=== PATIENT | female | born 1950 | race Caucasian/White ===

== ENCOUNTER 2017-03-08 11:26 | Inpatient (IN) | payer OTHER, MEDICARE ==
[~2017-03-08] VITALS: Ht 162.6 cm; Wt 81.7 kg
[~2017-03-08 11:26] MED LIST: HYDROCODON-ACE1 EA11 PO
--- NOTE | 2017-03-08 16:21 | NUR ---
Patient takes no medications
--- NOTE | 2017-03-08 16:30 | NUR ---
PT TO FLOOR VIA STRETCHER WITH ENVIRONMENTAL HEALTH INSPECTOR. MOVED TO BED GENTLY AND REPOSITONED SEVERAL TIMES. PT GIVEN DOSE OF DILAUDID. NO ABRASIONS NOTED. BRACE ON RIGHT WRIST. SMALL PILLOW UNDER RIGHT KNEE FOR COMFORT. DR GUILLEN IN TO EXPLAIN PROCEDURE, PT VERBALIZED UNDERSTANDING. SCDS IN PLACE
--- NOTE | 2017-03-08 18:38 | EKG ---
[facility] [address] [place] [address] Signed Normal sinus rhythm Normal ECG No previous ECGs available Confirmed by BRIGITTE DIAZ MD ([id number]) on 03/08/2017 6:38:16 PM Electronically Signed By: BRIGITTE DIAZ MD 03/08/17 1838 PATIENT NAME: JU WEINSTEIN Suze Electrocardiogram DATE OF : 50 PHYSICIAN: BRIGITTE DIAZ MD REPORT #: [id number] REPORT IS CONFIDENTIAL AND NOT TO BE RELEASED WITHOUT AUTHORIZATION
--- NOTE | 2017-03-08 18:39 | NUR ---
PT IV NOT PATENT FROM ED.COLT CAMERON HERE TO HAVE PT SIGN PAPERWORK, SHE STARTED AN IV. PT TOLERATED WELL. STATES SHE HAS SOME THROBBING PAIN BUT IS OK. DENIES CONCERNS. TALKING ON PHONE TO FRIEND.
--- NOTE | 2017-03-08 20:02 | NUR ---
PT CALLED FOR PAIN MEDICATION. PAIN 8/10 MOSTLY IN WRIST, BUT SOME IN HIP. MED WITH 1 MG DILUADID. ATE SANDWICH, DRINKING WATER. CALL LIGHT WITHIN REACH. STATED THAT SHE WAS MULT TASKING, TRYING TO OPEN A DOOR TO GET AWAY FROM A LOOSE DOG AND KEEP HER DOG TO SAFETY. DID NOT GET "TRIPPED" BY A DOG.
--- NOTE | 2017-03-08 20:41 | NUR ---
ORDERED UP SANDWICH FOR PATIENT. OFFERED HER SOUP ALSO, SHE DECLINED. GOT PATIENT FRESH ICE WATER. BOARDS UPDATED.
--- NOTE | 2017-03-08 21:20 | NUR ---
PATIENT IS RESTING IN BED AND REPORTS 9/10 PAIN IN HER RIGHT WRIST AND 5/10 PAIN IN HER RIGHT HIP. 1MG PRN IV DILAUDID GIVEN. GAVE THE PATIENT A WARM BLANKET AND A WHITE NOISE MACHINE TO HELP HER SLEEP. SCDs/HEEL PROTECTORS ON, CALL LIGHT WITHIN REACH.
--- NOTE | 2017-03-08 22:14 | NUR ---
WHEN PT WAS ADMITTED TO ROOM 111 FROM THE ED, PT HAD A PEREZ, 16 FR, THAT WAS PLACED BY COLT RODRIGUEZ. PHONE CALL TO CONFIRM THE DATE AND TIME TO JENNIFER AT THIS TIME.
--- NOTE | 2017-03-08 22:18 | NUR ---
PATIENT REPORTS 8/10 RIGHT WRIST PAIN AND 6/10 RIGHT HIP PAIN. 1MG IV DILAUDID GIVEN. SCDs/HEEL PROTECTORS ON, CALL LIGHT WITHIN REACH. BREATHING IS EVEN AND UNLABORED, 20 RESPIRATION/MIN. PATIENT DENIES FURTHER NEEDS AT THIS TIME.
--- NOTE | 2017-03-08 23:20 | NUR ---
PT CALLED NURSES STATION, COMPLAINED OF "8.5/10" PAIN. GAVE DILAUDID IV FOR PAIN. PT ALERT, BUT SOMETIMES SLIGHTLY CONFUSED. SHE IS HAVING TROUBLE REMEMBERING HOW TO USE HER CALL LIGHT TO CONTROL THE TV, EDUCATED PT WATCH LEADER LIGHT USE SEVERAL TIMES SINCE BEGINNING OF SHIFT. GAVE PT FRESH ICE WATER, PT UNDERSTANDS THAT SHE WILL BE NPO AT MIDNIGHT. WILL CONTINUE TO MONITOR PT CLOSELY.
--- NOTE | 2017-03-08 23:48 | NUR ---
PATIENT HAS BEEN COMPLAINING OF 8-9 PAIN IN RIGHT WRIST EVERY HOUR. 1MG OF PRN IV DILAUDID HAS BEEN GIVEN ROUGHLY EVERY HOUR. PATIENT PUT ON CONTINUOUS PULSE OXIMITRY DUE TO HOURLY NARCOTIC DOSES. O2 SATS WERE IN THE HIGH 80S, PUT 2L OF O2 VIA NC. ALSO APPLIED ICE TO RIGHT WRIST. PATIENT IS ARROUSABLE TO VOICE, HOWEVER SHE IS DROWSY AND FORGETFUL AT TIMES NEEDING RE-ORIENTATION TO TIME. SHE HAS DIFFICULTY ANSWERING QUESTIONS AT TIMES. BREATHING IS EVEN AND UNLABORED SHOWING NO SIGNS OF DISTRESS OR DISCOMFORT. CALLED DR. GUILLEN AND INFORMED HIM OF THE ABOVE INFORMATION. HE ORDERED 1-2 MG IV DILAUDID PRN AND TO USE PAIN MEDICATION JUDICIOUSLY.
--- NOTE | 2017-03-09 00:01 | NUR ---
NURSE IN ROOM. PUT IN NEW IV AND ATTACHED TO PULSE OX MACHINE.
--- NOTE | 2017-03-09 00:37 | NUR ---
PT CONTINUOUS PULSE OXIMETER HAS ALARMED SEVERAL TIMES DUE TO PT PULLING HER NASAL CANULA OFF, O2 SAT WAS 82% WHEN RN ENTERED ROOM. PT WOKE TO RN IN ROOM, REPLACED 2L O2 VIA NC AND O2 SAT INCREASED TO 94%. PT COMPLAINED OF FEELING HOT, REMOVED SOME BLANKETS AND TURNED DOWN HEAT IN ROOM. REMOVED ICE WATER FROM BED SIDE TABLE. PT UNDERSTANDS SHE IS NPO. PT HAS NO FURTHER NEEDS. NO APPARENT DISTRESS AT THIS TIME. SHE IS LAYING IN BED, APPEARS RELAXED. CALL LIGHT IN REACH.
--- NOTE | 2017-03-09 00:54 | NUR ---
PATIENT REPORTS 10/10 PAIN IN RIGHT WRIST. 1.25 MG OF IV PRN DILAUDID GIVEN. ALSO APPLIED ICE PACK AND REPOSITIONED ARM. BREATHING IS EVEN AND UNLABORED. O2 SAT AT 97% ON 2L O2 VIA NC, PULSE IS 84. SHE IS A&O X4. PATIENT DENIES FURTHER NEEDS AT THIS TIME.
--- NOTE | 2017-03-09 02:42 | NUR ---
PATIENT IS RESTING COMFORTABLY IN BED. BREATHING IS EVEN AND UNLABORED. O2 SAT AT 94% ON 2L O2 VIA NC, PULSE IS 91, NO SIGNS OF DISCOMFORT. CALL LIGHT WITHIN REACH.
--- NOTE | 2017-03-09 03:52 | NUR ---
PATIENT IS RESTING COMFORTABLY IN BED, BREATHING IS EVEN AND UNLABORED, O2 SATURATION AT 96% ON 2L OF O2, PULSE IS 81. PATIENT IS DISORIENTED TO TIME, BUT IS AWARE OF WHERE SHE IS AND WHY SHE IS IN THE HOSPITAL. PATIENT STATED THAT SHE THOUGHT IT WAS 1949. RE-ORIENTED HER AND TOLD HER IT WAS 2016. AFTER RE-OREINTING HER, SHE ANSWERED 2017 FOR THE REST OF THE QUESTIONS, INCLUDING THE PAIN ASSESSMENT. SHE IS NOT GRIMACING, APPEARS RELAXED IN BED, IS NOT MAKING ANY SOUNDS INDICATING DISCOMFORT, FALLS ASLEEP QUICKLY WHEN NOT BEING VERBALLY STIMULATED, APPEARS CONTENT IN BED.
--- NOTE | 2017-03-09 05:32 | NUR ---
pt complained of 8/10 pain in her right wrist and her right hip. pt able to give pain rate number and seems more oriented at this time. oxygen sat 98%, hr 88. gave fresh ice pack. pt has no further needs. call light in reach.
--- NOTE | 2017-03-09 05:52 | NUR ---
PATIENT WAS COMPLAINING OF 8-9 PAIN IN RIGHT WRIST Q1H DESPITE 1MG IV DILAUDID GIVEN EVERY HOUR. NEW ORDER FOR 1-2 MG IV DILAUDID. GAVE PATIENT 1.25 MG IV DILAUDID X1 AND PATIENT'S PAIN HAS BEEN ADEQUATELY CONTROLLED. SHE HAS BEEN DISORIENTED TO TIME THROUGHOUT SHIFT, REQUIRING RE-ORIENTATION. AT TIMES, PATIENT HAS BEEN UNABLE TO RATE HER PAIN, STATING "IT'S 2017" WHEN ASKED TO RATE PAIN ON 0-10 PAIN SCALE, THUS THE FLACC SCALE WAS USED, WHICH RESULTED IN 0 FOR PAIN. DUE TO FREQUENT NARCOTIC DOSES, PUT PATIENT ON CONTINUOUS PULSE OX, WHICH SHOWED SATS IN THE HIGH 80s. ON 2L OF 02 VIA NC. BREATHING HAS BEEN EVEN AND UNLABORED. INTENTIONAL ROUNDING DONE WITH ALL PATIENT'S NEEDS MET.
--- NOTE | 2017-03-09 06:19 | NUR ---
PATIENT HAD TEMP OF 99.4 AND 100 ML OF URINE OUTPUT FOR LAST [address] DIAZ AND NOTIFIED HIM OF PATIENT'S CURRENT CONDITION. HE ORDERED AN 1L BOLUS OF LR OVER 1HR. NO OTHER ORDERS AT THIS TIME.
--- NOTE | 2017-03-09 06:20 | NUR ---
PT RESTING QUIELTY. APPEARS TO BE SLEEPING. RR WNL AND UNLABORED. O2 SAT 97% ON 2L VIA NC. RR WNL AND UNLABORED.
--- NOTE | 2017-03-09 06:30 | NUR ---
UPDATED DR. GUILLEN ON PATIENT'S 99.4 TEMPERATURE AND LOW URINE OUTPUT. INFORMED HIM THAT DR. DIAZ ORDERED A 1L BOLUS OF LR.
--- NOTE | 2017-03-09 07:10 | NUR ---
REPORT RECEIVED FROM COLT SOARES. PT CURRENTLY SLEEPING AFTER A FAIRLY RESTLESS NIGHT. PT SLIGHTLY CONFUSED AT TIMES.
--- NOTE | 2017-03-09 08:00 | NUR ---
GAVE PT A SURGICAL WIPE DOWN. EMPTYED GARBAGE. AM CARE. GOT PT WATER AND TOOTHET.
--- NOTE | 2017-03-09 09:33 | NUR ---
PT RESTING WITH EYES CLOSED AFTER A PAIN MED DOSE AND ASSESSMENT. WIPE DOWN DONE AND LR HANGING. PT AWAITING SURGERY.
--- NOTE | 2017-03-09 10:06 | NUR ---
PT CALLED FOR MORE PAIN MEDICATION AND WOULD LIKE US TO CALL HER FRIEND AND UPDATE HER ON THE SCHEDULE.
--- NOTE | 2017-03-09 11:20 | NUR ---
CHECKED ON PT, RESTING WITH EYES CLOSED.
--- NOTE | 2017-03-09 11:49 | NUR ---
PT OFF FLOOR WITH COLT EDWARDS.
--- NOTE | 2017-03-09 14:35 | NUR ---
PT IN SURGERY
--- NOTE | 2017-03-09 15:38 | NUR ---
03/09/17 Werner Mccabe BP CUFF REPOSITIONED AFTER FIRST READING. PT REMAINS UNRESPONSIVE TO TAP AND VOICE ON ENTRY TO PACU.
--- NOTE | 2017-03-09 16:08 | NUR ---
PT REMAINS OFF FLOOR WITH SURGERY.
--- NOTE | 2017-03-09 18:22 | NUR ---
PT ARRIVED TO ROOM 127 AT 1655, VS TAKEN AND IVF STARTED. ICE TO RIGHT WRIST AND CRYO CUFF IN PLACE TO RIGHT HIP, SCD'S & HEEL PROTECTORS ON BILAT. RT HERE AND NEB TX GIVEN WITH RACEMIC EPI. (PT WITH STRIDOR). PT ON OXYMASK AT 10L, ABG DRAWN PER DR. NEGRON. DR. DIAZ IN TO SEE PT. PT RESTING NOW WITH HOB ELEVATED, NO C/O OF PAIN.
--- NOTE | 2017-03-09 20:00 | NUR ---
PT SHIFT ASSESMENT COMPELTED. PT RIGHT ARM AND HIP IN GILSON WRAP. CRYOCUFF IN PLACE. PT TOLERATING WELL. PT HAS ICE TO WRIST WELL. PT LUNGS CLEAR AND DIMINISHED. PT ON CPAP AT THIS TIME PER ORDERS. SUHAIL LCONTINUE TO MONITOR.
--- NOTE | 2017-03-09 21:07 | NUR ---
PT RESTING IN BED. SHIFT REPORT RECIVED. ALL QUESTIONS ANSWERED. PT IS RESTING IN BED AT THIS TIME. CALL LIGHT IN REACH. PT EATING DINNER AND PLACED ON NC AT 4L DURING THIS TIME. PT TOLERATED WELL. NO OTHER ISSUES AT THIS TIME. WILL CONTINUE TO MONITOR.
--- NOTE | 2017-03-09 21:19 | NUR ---
RT IN TO TAKE PT OFF CPAP AND PLACE BACK ON 4L NC PER PT REQUEST. PT NEEDS WATER NO OTHER ISSUES AT THIS TIME. WILL CONTINUE TO MONITOR.
--- NOTE | 2017-03-09 22:30 | NUR ---
PT RESTING IN BED WITH CPAP IN PLACE. NO OTHER ISSUES AT THIS TIME. WILL CONTINUE TO MONITOR.
--- NOTE | 2017-03-10 | NUR ---
PT ASSESSMENT COMPLETED. PT RESTING IN BED. CPAP PLACED BACK ON AT THIS TIME. PT REMOVED FOR 1 HOUR AND ON 4L NC WHILE OFF CPAP. PT LUNGS REMAINS CLEAR. CHANGED ICE BAG AND PLACED ON RIGHT ARM. WILL REMOVE AND REPLACE PER ORDER. NO OTHER ISSUES AT THIS TIME. CALL LIGHT IN REACH. SUHAIL LOCKETTUE TO MONITOR.
--- NOTE | 2017-03-10 01:00 | NUR ---
PT CALLED TO HAVE CPAP OFF. PLACED PT ON 4L OXYGEN VIA NC. PT STATES " I DO NOT LIKE THAT MACHINE, THE AIR IS SO WARM AND DRIES ME OUT". EDUCATED ABOUT THE PURPOSE OF CPAP. PT DOES NOT WISH TO HAVE IT ON AT THIS TIME. WILL CONTINUE TO MONITOR.
--- NOTE | 2017-03-10 02:00 | NUR ---
PT BACK ON CPAP AT THIS TIME. PT WILL CALL IF SHE NEEDS IT BACK OFF. WILL CONTINUE TO MONITOR.
--- NOTE | 2017-03-10 03:00 | NUR ---
PT CALLED TO HAVE CPAP OFF AND BACK ON OXYGEN VIA NC. NO OTHER ISSUES AT THIS TIME. WILL CONTINUE TO MONITOR.
--- NOTE | 2017-03-10 05:00 | NUR ---
PT BACK ON CPAP AT THIS TIME. PT TOELRATING WELL. NO OTHER ISSUES WILL CONTINUE TO MONITOR.
--- NOTE | 2017-03-10 05:30 | NUR ---
CALLED TO UPDATE MD ABOUT LOW URINE OUTPUT. MD ORDERED LR BOLUS OF 500ML OVER ONE HOUR. WILL CONTINUE TO MONITOR I/O.
--- NOTE | 2017-03-10 06:24 | NUR ---
REFILLED CRYO CUFF WITH ICE THIS AM. SCD, KNEE HIGH COMPRESSION SOCKS, AND HEEL PROTECTORS ON BILATERALLY. PT HAS ABDUCTOR PILLOW IN [place]. PLACED ICE ON RIGHT HAND FOR 20 MINUTE INTERVALS EVER 1-2 HOURS PER ORDER. PT DENIED ANY PAIN THROUGHOUT THE NIGHT. NO ISSUES WITH BLEEDING THROUGH BANDAGE. WILL CONTINUE TO MONITOR. CALL LIGHT IN PLACE.
--- NOTE | 2017-03-10 08:00 | NUR ---
PT ALERT AND ORIENTED X4. ALL VITALS WNL AT THIS TIME. PT DENIES PAIN, NAUSEA, AND SOB AT THIS TIME. CRYO CUFF, SPIKA DRESSING, FLEX HOSE, HEEL PROTECTORS, AND SCD'S IN PLACE TO RT HIP. ICE PRESENT IN CRYO CUFF.
--- NOTE | 2017-03-10 08:35 | NUR ---
HANDOFF RECEIVED BY PHONE FROM COLT WANG.
--- NOTE | 2017-03-10 08:40 | NUR ---
FULL REPORT GIVEN TO SIOMARA GREGORY.
--- NOTE | 2017-03-10 09:10 | NUR ---
PT ARRIVES TO MED SURG FLOOR. PT ON ROOM AIR, 96%, HR 80, BP 135/81 MAP 94, RESPIRATIONS 20. PT IS ALERT AND ORIENTED X 3. LUNGS CLEAR THROUGHOUT. PT HAS SCDS, HEEL PROTECTORS, AND HIP ABDUCTOR IN PLACE. IV FLUID INFUSING AT 125 ML/HR. PT IV SITES PATENT, FLUSH WELL. PT STATING 0/10 PAIN AT THIS TIME. EDUCATED PT GRAINING PRESS OPERATOR LIGHT, SCD'S, PAIN, ACTIVITY. PT BROUGHT COFFEE, JUICE, AND WATER, CALL LIGHT AND PHONE IN REACH. WILL CONTINUE TO MONITOR.
--- NOTE | 2017-03-10 10:42 | NUR ---
IN TO SEE PT. PT AWAKE IN BED IVF INFUSING AT 125 ML/HR. SCD'S ON, HEEL PROTECTORS ON, HIP ABDUCTOR IN PLACE. PT CONTINUES TO DENY PAIN, 0/10. EDUCATED PT TO USE CALL LIGHT TO REPORT PAIN. PT STILL EATING BREAKFAST, DENIES NAUSEA. CALL LIGHT AND PHONE IN REACH. ICE TURNED OFF, HAS BEEN ON. WILL CONTINUE TO MONITOR.
--- NOTE | 2017-03-10 11:10 | NUR ---
PT ON CONTINUOUS PULSE OX, SPO2 91%. EDUCATED PT ON INCENTIVE SPIROMETER USE. PT DEMONSTRATED, 750 ML ON BEST EFFORT. PT HAS IVF INFUSING AT 125 ML/HR, SCDS, HEEL PROTECTORS, HIP ABDUCTOR ALL IN PLACE. ASSISTED PT TO REPOSTION HIGHER IN BED. CALL LIGHT, PHONE, AND PERSONAL ITEMS IN REACH. PT CONTINUES TO DENY PAIN AT THIS TIME, STATING SOME "TINGING IN RIGHT WRIST".
--- NOTE | 2017-03-10 12:24 | NUR ---
PT AWAKE IN BED. TOOK HER A WARM BLANKET AND FRESH ICE WATER. EMPTY GARBAGE.
--- NOTE | 2017-03-10 13:24 | NUR ---
ASSISTED PT UP TO COMMODE, TWO RN ASSIST. PT ABLE TO STAND AND PIVOT TO COMMODE. PT GIVEN CALL LIGHT AND INSTRUCTED TO USE CALL LIGHT WHEN FINISHED. LINENS CHANGED ON BED.
--- NOTE | 2017-03-10 13:53 | NUR ---
PATIENT WAS ASSISTED TO BEDSIDE COMMODE. SHANTA PHYSICAL THERAPIST IS IN ROOM WITH PATIENT RIGHT NOW. PATIENT REQUESTED PAIN MED FOR 3/10 PAIN ON THE RIGHT LEG. PATIENT WAS MEDICATED.
--- NOTE | 2017-03-10 14:29 | NUR ---
PATIENT WALKED AROUND THE BED WITH PHYSICAL THERAPIST. TOLERATED WELL. PATIENT WAS MEDICATED BEFORE PT. PATIENT IS BACK TO BED AT THIS TIME. REPORT MINIMAL PAIN. DENIES NAUSEA OR DIZZINESS WHILE WALKING. WILL CONTINUE TO MONITOR.
--- NOTE | 2017-03-10 14:37 | NUR ---
PT. WORKED WITH PHYSICAL THERAPY AND WAS TIRED AFTER WALKING AROUND BED. PT. NOW IN BED AND COMPLAINED OF FEELING COLD. GOT PT. A WARM BLANKET. PT. IS RESTING WITH CALL LIGHT IN REACH.
--- NOTE | 2017-03-10 14:56 | NUR ---
AFTERNOON ASSESSMENT COMPLETE. PT ALERT AND ORIENTED X 3. PTS LUNGS CLEAR THROUGHOUT ALL LOBES. BOWEL TONES ACTIVE X 4. PT DENIES PAIN AND NAUSEA. PT STATES SHE HAS BEEN "WOOSEY", EXPLAINS THIS DIZZINESS. PT SAT UP IN BED, SPO2 WAS AT 85%, PT NOW ON 2L NC, SPO2 94%. PT WAS PREVIOUSLY NAPPING. HR 84. PT UP IN BED EATING SANDWICH. IVF INFUSING AT 125 ML/HR, SCD'S IN PLACE, HEEL PROTECTORS ON, HIP ABDUCTOR IN PLACE, ICE ON. CALL LIGHT IN REACH. WILL CONTINUE TO MONITOR.
--- NOTE | 2017-03-10 16:28 | NUR ---
IN TO SEE PT, PT DENIES PAIN, STATES 0/10 AT THIS TIME. DOES SAY SHE HAS SOME DISCOMFORT IN BUTT FROM LYING IN BED. MADE PLAN WITH PT TO GET UP TO CHAIR AFTER FRIEND VISITS THIS AFTERNOON. ICE OFF PT AT THIS TIME, PT HAS SCD'S ON, HEEL PROTECTORS ON, HIP ABDUCTOR IN PLACE. IVF INFUSING. CALL LIGHT IN REACH, WILL CONTINUE TO MONITOR.
--- NOTE | 2017-03-10 18:29 | NUR ---
ASSISTED PT TO CHAIR WITH STUDENT NURSE ASSIST W FWW. PT CONTINUES TO DENY ANY PAIN, DOES STATE THAT NUMBNESS AND FEELING IS COMING BACK TO EXTREMITIES. PT GIVEN CALL LIGHT, CELL PHONE. IVF INFUSING AT 125 ML/HR, SPO2 93% AFTER AMBULATION ON 2L O2 BY NC. WILL CONTINUE TO MONITOR.
--- NOTE | 2017-03-10 18:29 | NUR ---
PT. REQUESTED TO BE MOVED FROM BED TO CHAIR. 2 PERSON STANDBY ASSIST WITH ROLLING WALKER. PT. TOLERATED MOVEMENT WELL. DID NOT REPORT PAIN AT THIS TIME. IS SITTING IN CHAIR WITH CALL LIGHT IN LAP.
--- NOTE | 2017-03-10 18:31 | NUR ---
PT HAS DENIED PAIN THROUGHOUT SHIFT. HAS RECEIVED PRN NORCO X 1 THIS SHIFT FOR 3/10 PAIN AFTER PHYSICAL THERAPY. PT WORKED WITH PHYSICAL THERAPY, BUT FELT DIZZY WITH AMBULATION AROUND BED. PT LUNGS CLEAR, PT HAS HAD OCCASIONAL COUGH, USED IS INSTRUCTED THROUGHOUT SHIFT. PT COOPERATIVE, ALERT, ORIENTED, VS HAVE BEEN STABLE. PEREZ HAS DRAINED SUFFICIENT URINE THROUGHOUT SHIFT. ICE, SCDS, HEEL PROTECTORS, HIP ABDUCTOR IN PLACE WHILE PT IN BED. PT HAS BEEN ON 2L NC THIS AFTERNOON AFTER DESATURATING TO THE MID 80S ON ROOM AIR WHILE RESTING.
--- NOTE | 2017-03-10 18:54 | NUR ---
PT COMPLAINING THAT RIGHT ARM FEELS TIGHT. ASSESSED ARM, PT HAS GOOD CAPILLARY REFILL IN FINGERS, SKIN IS WARM. ABLE TO FIT TWO FINGER WIDTHS UNDER CAST. PT STATING IT IS UNCOMFORTABLE. WILL CONTINUE TO MONITOR.
--- NOTE | 2017-03-10 19:05 | NUR ---
SHIFT REPORT RECIEVED AT BEDSIDE. PATIENT UP IN CHAIR. DENIES NEEDS AT THIS TIME. CALL LIGHT WITHIN REACH.
--- NOTE | 2017-03-10 20:01 | NUR ---
RE-ASSESED PATIENTS TEMP. PATIENTS TEMP IS WNL.
--- NOTE | 2017-03-10 20:30 | NUR ---
PATIENT ASSESSMENT COMPLETED AND DOCUMENTED. PATIENT REPORTS PAIN IS WELL CONTROLLED, RATED AT 2/10. PAIN IS MOSTLY IN HER RIGHT WRIST. STATES THAT HER RIGHT HIP "IS NOT PAINFUL A THOUGHT, JUST A LITTLE SORE". PATIENT DENIES NAUSEA AT THIS TIME AND IS TOLERATING REGULAR DIET. ATE 95% OF DINNER. IVF INFUSING, SITE WNL. DRESSING ON RIGHT WRIST IS C/D/I. NO EDEMA NOTED ABOVE DRESSING OR BELOW. PATIENT REPORTS IT FELT A LITTLE TIGHT UNDER THE WRIST DRESSING EARLIER IN THE DAY. ARM IS NOW ELEVATED ON A PILLOW AND PATIENT DENIES TIGHTNESS AT THIS TIME. RIGHT HIP DRESSING IS C/D/I. CRYO IN PLACE, ON RIGHT HIP W/SUFFICIENT ICE. ABDUCTOR IN PLACE. FLEX HOSE, SCDS, AND HEEL PROTECTORS ON BILATERALLY. LUNG SOUNDS CLEAR. PULSE OX 98% ON 2L NC. PEREZ IN PLACE, OUTPUT QS. PATIENT DENIES ANY NEEDS AT THIS TIME. CALL LIGHT IN REACH.
--- NOTE | 2017-03-10 21:55 | NUR ---
PATIENT REPORTED ITCHING AND REQUEST PRN MEDICATION. CONTACTED. NEW ORDERS RECIEVED. VERIFIED USING READ BACK METHOD. ORDERS ENTERED.
--- NOTE | 2017-03-10 22:03 | NUR ---
PRN BENADRYL GIVEN PER ORDER FOR ITCHING. PATIENT REPORTED THAT SHE "ITCHED ALL OVER" AND IT WAS KEEPING HER FROM BEING ABLE TO SLEEP.
--- NOTE | 2017-03-10 22:38 | NUR ---
PATIENT REQUESTED RT BE CALLED TO PUT ON HER C PAP. RT IN ROOM NOW.
--- NOTE | 2017-03-11 00:10 | NUR ---
PATIENT RESTING IN BED. EYES CLOSED. CPAP IN PLACE. PULSE OX 98%. IVF INFUSING. PEREZ IN PLACE. ABDUCTOR IN PLACE. FLEX GARCIA, SCDS, HEEL PROTECTORS IN PLACE. CALL LIGHT IN REACH.
--- NOTE | 2017-03-11 01:39 | NUR ---
PATIENT REQUESTED TO HAVE CPAP TAKEN OFF AT THIS TIME. AGREES TO PUT IT BACK ON NEXT TIME SHE WAKES UP. PULSE OX, 98% ON 2L NC. DENIES NEEDS AT THIS TIME.
--- NOTE | 2017-03-11 02:40 | NUR ---
PATIENT WOKE UP SLIGHTLY CONFUSED. PATIENT FORGETS ASKING TO HAVE THE CPAP TAKEN OFF. OFFERED TO PUT IT BACK ON. PATIENT REFUSED. PATIENT HAD TAKEN OFF HER NC. PLACED NC 2L.
--- NOTE | 2017-03-11 04:09 | NUR ---
PATIENT RESTING IN BED. EYES CLOSED. RR 18. PULSE OX 98% ON 2L NC. DRESSING ON RIGHT WRIST C/D/I. WRIST ELEVATED ON PILLOW. CRYO IN PLACE ON HIP, HAS SUFFICIENT ICE. IVF INFUSING PER ORDERS, SITE WNL. ABDUCTOR IN PLACE. FLEX GARCIA, SCDS, HEEL PROTECTORS IN PLACE BILATERALLY. CALL LIGHT IN REACH.
--- NOTE | 2017-03-11 04:59 | NUR ---
PATIENT RESTED WELL THROUGHOUT SHIFT. LUNGS CLEAR. 2L NC. CONTINUOUS PULSE OX, 02 96-98%. PATIENT REPORTED FEELING SLIGHTLY CONSTIPATED. ABD SOFT, NONTENDER, BOWEL SOUNDS ACTIVE. RIGHT WRIST DRESSING C/D/I. DRESSING ON HIP C/D/I. CRYO IN PLACE. SCDS, FLEX HOSE, AND HEEL PROTECTORS BILATERALLY. ABDUCTOR WHEN IN BED. PEREZ IN PLACE, OUTPUT QS. IVF INFUSING, SITE WNL. TOLERATING REGULAR DIET, DENIES NAUSEA. 1PA W/FWW.
--- NOTE | 2017-03-11 06:49 | NUR ---
PATIENT RESTING IN BED. FLIGHT SURVEYOR PERFORMED VS AND DOCUMENTED THEM. CRYO HAS SUFFICIENT ICE, IN PLACE AT RIGHT HIP. DRESSINGS C/D/I. IVF INFUSING, SITE WNL. PATIENT REPORTS SUFFICIENT PAIN CONTROL AT THIS TIME. CALL LIGHT IN REACH.
--- NOTE | 2017-03-11 07:20 | NUR ---
BEDSIDE REPORT RECEIVED FROM COLT WILLAMS. PT SLEEPING, SPO2 93% ON 2L NC. HR 86. IV FLUIDS INFUSING AT 125 ML/HR. WILL CONTINUE TO MONITOR.
--- NOTE | 2017-03-11 07:32 | OR ---
[facility] [address] [place], [place] [address] Signed DATE OF PROCEDURE: 03/09/17 PREOPERATIVE DIAGNOSES Right distal radius fracture, comminuted, extensive. Right displaced femoral neck fracture. POSTOPERATIVE DIAGNOSES Right distal radius fracture, comminuted, extensive. Right displaced femoral neck fracture. PROCEDURE PERFORMED Right bipolar hemiarthroplasty. Closed reduction and percutaneous pinning, right distal radius. SURGEON: Deborah Lopez MD. ORTHODONTIC TREATMENT COORDINATOR: Selam Marie PA-C. Selam was present for the entire surgery and was critical positioning, retraction, wound closure, and holding the reduction during the pinning. ANESTHESIA: General with interscalene block and spinal. BLOOD LOSS: 150 mL. IMPLANTS Size 8 bipolar stem with a 45 bipolar head, +0 neck. Two 1.6 K-wires, two 1.25 K-wires. BRIEF HISTORY Aylin is a 67-year-old female who suffered a ground level fall yesterday afternoon, was admitted my service, cleared by the Medicine Service, and elected to proceed with surgery. Risks, benefits, and alternatives were discussed at length. She understands wished to proceed. DESCRIPTION OF PROCEDURE Once consent was obtained, she was taken the operating room, and after adequate anesthesia, was placed on operating table in the supine position. A well-padded proximal arm tourniquet was placed in the right arm and the arm was prepped and draped in a standard sterile fashion. The fracture was imaged under the C-arm and the fracture was reduced as best we can get it. There was still some volar displacement in the sagittal plane, but looked good. Two 1.6 K-wires were then passed from the radial styloid across the fracture engaging the body of the radius. Two more 1.25 were placed, one in the subarticular region and one a little bit more volar, but away from the radial pulse. Electronically Signed By: DEBORAH LOPEZ MD 03/11/17 0732 PATIENT NAME: AYLIN WEINSTEIN OPERATIVE REPORT DATE OF : 50 PHYSICIAN: DEBORAH LOPEZ MD REPORT #: [id number] REPORT IS CONFIDENTIAL AND NOT TO BE RELEASED WITHOUT AUTHORIZATION [facility] [address] [place], [place] [address] Signed Under fluoroscopy, the wrist was moved and the fracture was stable. The pins were cut and bent and dressed with sterile gauze, sterile cast padding, and a radial gutter splint. The drapes were taken down and she was moved into a left lateral decubitus position. Axillary roll was placed, and all downside pressure points well padded. The leg was then prepped and draped in a standard sterile fashion. The greater trochanter was palpated, although it was extremely difficult to locate it. She did have significant pannus laterally. We then made a 5-inch incision centered over what I thought was the greater trochanter. It turned out to be a little bit posterior. This was carried through skin and subcutaneous tissue, down to the IT band. The IT band was divided longitudinally and the vastus lateralis was then divided from the tip of the trochanter distally and elevated in subperiosteal manner. All bleeders were cauterized as we went. Gluteus minimus and capsule were split sharply from the tip of the trochanter to the acetabular rim and peeled off the anterior neck. She had extensive scarring of the hip capsule and decreased range of motion consistent with early to moderate arthritis. The hip was attempted to be dislocated; however, dislodged at the fracture site and there was significant amount of the femoral neck left. I made a femoral neck cut 1 fingerbreadth above the lesser trochanter and the bone was removed. The femoral head was then removed from the acetabulum. The acetabular cartilage looked good. We then measured it to 45 and 45 trial fit in the acetabulum quite nicely. The proximal femur was then approached. We did extend the incision about another inch and a half proximally to allow a straight shot down the canal. The canal was opened using a [employer] cutter, followed by the Clementina awl, was then broached up to an 8, which quite well fitting. The broach was removed and finally stem was impacted until it was well seated. The +0 head was placed on this and the 45 bipolar. Hip was reduced. Leg lengths found to be equal. She had excellent range of motion, although she was still a little stiff in external rotation. The wound was copiously irrigated with antibiotic solution throughout the procedure under pulse lavage. The periarticular soft tissues were injected with 100 mL Ropivacaine Toradol mixture. The capsule was then closed using #1 Vicryl. The vastus layer and the IT band layer were closed independently using #1 Stratafix. The fat was closed with 2-0 Vicryl and the subcutaneous tissue with 0 Stratafix. Aure were used for the skin. The wound was dressed with Mepilex, ABD, and OpSite. She was placed in a hip spica David dressing. She was then awakened and taken recovery in satisfactory condition. All sponge, needle, instrument counts correct. Also, of note, we do plan to bring her back to the operating room in a couple weeks and remove the pins and hopefully be able to play through fracture at that time. Deborah Lopez MD Electronically Signed By: DEBORAH LOPEZ MD 03/11/17 0732 PATIENT NAME: AYLIN WEINSTEIN OPERATIVE REPORT DATE OF : 50 PHYSICIAN: DEBORAH LOPEZ MD REPORT #: [id number] REPORT IS CONFIDENTIAL AND NOT TO BE RELEASED WITHOUT AUTHORIZATION [address], [place] [address] Signed Beni /[id number] cc: Preeti Feldman NP Electronically Signed By: DEBORAH LOPEZ MD 03/11/17 0732 PATIENT NAME: AYLIN WEINSTEIN OPERATIVE REPORT DATE OF : 50 PHYSICIAN: DEBORAH LOPEZ MD REPORT #: [id number] REPORT IS CONFIDENTIAL AND NOT TO BE RELEASED WITHOUT AUTHORIZATION
--- NOTE | 2017-03-11 07:40 | NUR ---
DR. GUILLEN IN TO SEE PT. REMOVED GILSON WRAP FROM RIGHT HIP, VERBAL ORDER TO CHANGE OP SITE WHEN PT GETS UP. PT DENIES PAIN AT THIS TIME. DR. GUILLEN VERBAL ORDER TO D/C IV FLUID, FLUIDS STOPPED, IV SALINE LOCKED, LINE PATENT. VERBAL ORDER TO D/C PEREZ CATHETER. PT ASSISTED TO REPOSITION IN BED FOR BREAKFAST, PT NOW EATING BREAKFAST, CALL LIGHT IN REACH. SCD'S, HEEL PROTECTORS, HIP ABDUCTOR ON. WILL CONTINUE TO MONITOR.
--- NOTE | 2017-03-11 09:10 | NUR ---
PT ASSESSMENT COMPLETE. IV IN LEFT AC INFILTRATED, LEAKING, REMOVED, CATHETER INTACT. IV IN LEFT WRIST PATENT, FLUSHES WELL. PEREZ CATHETER D/C PER MD ORDER. PT NABIL WELL. CRACKLES NOTED IN LUNG BASES BILATERALLY. ENCOURAGED PT TO COUGH, DEEP BREATHE, CLEARED UP SOME AFTER COUGHING, FINE CRACKLES STILL NOTED IN BASES AFTER. PT STATING PAIN IS AT 3 1/2 /10 IN RIGHT WRIST, URETHRA, SOME TINGLING IN LEFT WRIST. IV TORADOL ADMINISTERED PRN PAIN. PT DENIES NAUSEA. CALL LIGHT IN REACH, WILL CONTINUE TO MONITOR.
--- NOTE | 2017-03-11 09:30 | NUR ---
PT UP TO COMMODE WITH PT. ABLE TO URINATE AFTER CATHETER REMOVAL. PT AND STUDENT NURSE IN ROOM WITH PT WHILE ON COMMODE. PT AMBULATED W FWW AND 1PA TO COMMODE WITH NO COMPLAINTS OF PAIN. WILL CONTINUE TO MONITOR.
--- NOTE | 2017-03-11 09:30 | NUR ---
RT AC IV LEAKING. DISCONTINUED, CATHETER INTACT. PT HAS RT WRIST IV SALINE LOCK PATENT. PT STATED HAVING PAIN OF 3.5 /10 REQUESTED PAIN MEDICATION. TORADOL 15 MG GIVEN IV. PEREZ DC PER ORDERS. AMBULATED TO COMMODE WITH PHYSICAL THERAPY AND URINATED. ASSESSED AND REPLACED WOUND DRESSING ON RT HIP. NO BRUISING AROUND SITE, SMALL DRAINAGE ON OLD BANDAGE, SCANT BLOOD ON SITE, VASHTI INTACT. NURSE ADIEL ASSISTED WITH DRESSING CHANGE.
--- NOTE | 2017-03-11 10:40 | NUR ---
PT UP IN CHAIR, REASSESSED PT PAIN, STATING 2/10 IN RIGHT WRIST. PT IS UP IN CHAIR, ICE ON RIGHT HIP. OXYGEN 2L BY NC. IVS SALINE LOCKED. PT DRESSING WAS CHANGED BY COLT LIZARRAGA AND STUDENT NURSE JESSICA. PASTOR BLANC IS IN TALKING WITH PT AT THIS TIME. EDUCATED PT TO NOTIFY OF PAIN. PT HAS CALL LIGHT IN REACH.
--- NOTE | 2017-03-11 11:10 | NUR ---
PT MOVED FROM CHAIR TO COMMODE TO URINATE. PT TOLERATED WELL. REPORTS FEELING "TIGHTNESS" IN RIGHT HIP. PAIN LEVEL AT 3.5/10 REQUESTING PRN MEDICATION.
--- NOTE | 2017-03-11 12:17 | NUR ---
ASSISTED PT TO COMMODE TO URINATE AND THEN BACK TO CHAIR. TOLERATED WELL. PT STATED PAIN AT 4.5/10 IN HER RIGHT HIP FEELING "TIGHT". PT STATES "FEELING THE PRESSURE OF SITTING". RIGHT WRIST PAIN IS AT 4/10 FEELING TIGHT. CAP REFILL 2 SECONDS, SKIN IS PINK WARM AND DRY, NO INCREASE IN SWELLING. PT STATES PAIN IS ACCEPTABLE FOR NOW BUT WANTS PRN MEDICATIONS BEFORE PHYSICAL THERAPY. SMALL DOT ON HIP BANDAGE WHERE SCANT BLOOD WAS FOUND DURING DRESSING CHANGE ON 03/11. PT IS FEELING "SLEEPY" SITTING IN CHAIR AND ORDERING LUNCH WITH CALL LIGHT IN REACH. WILL CONTINUE TO MONITOR.
--- NOTE | 2017-03-11 12:19 | NUR ---
PATIENT WAS ASSISTED TO BEDSIDE COMMODE TO VOID. PATIENT USED WALKER WITH NO DIFFICULTY. ASSISTED BACK TO CHAIR. DENIES ANY NAUSEA, MINIMAL PAIN. NO APPARENT DISTRESS.
--- NOTE | 2017-03-11 13:24 | NUR ---
PT UP IN CHAIR, FRIENDS PRESENT IN ROOM. PT STATES PAIN IS 5/10 IN RIGHT HIP AT THIS TIME, PT DESCRIBES TIGHT, ASSESSED LIMB, WARM EXTREMITIES, STRONG DORSALIS PEDIS PULSE. ADMINISTERED 1 TABLET NORCO PRN. PT HAS CALL LIGHT IN REACH, WILL CONTINUE TO MONITOR.
--- NOTE | 2017-03-11 14:16 | NUR ---
DR DIAZ WAS IN TO ROOM TO EVALUATE PATIENT AND DISCUSS PLAN OF CARE. PATIENT RESTING IN THE CHAIR. REPORTS TIGHTNESS ON THE RIGHT LEG AND RIGHT ARM. PATIENT WAS MEDICATED FOR PAIN BY COLT STRINGER ABOUT AN HOUR AGO. WILL CONTINUE TO MONITOR.
--- NOTE | 2017-03-11 14:20 | NUR ---
PT ALERT, MOSTLY ORIENTED AND SEEMED PLEASED I STOPPED BY. SHE INVITED ME IN AND HAD A PLEASANT CONVERSATION. SHE DID NEED SOME REINFORCEMENT REGARDING PAIN MANAGEMENT. EXPRESSED APPRECIATION FOR HER FRIENDS THAT ARE OF GREAT COMFORT TO HER AND ALSO ABOUT THE CARE SHE IS RECEIVING HERE. SHE SEEMS VERY PLEASED. PT REQUESTED PRAYER AND ASKED ABOUT RECEIVING COMMUNION FROM FR CHAUDHARI. I WILL FOLLOW UP AND LET HIM KNOW. WILL CONTINUE TO FOLLOW
--- NOTE | 2017-03-11 14:30 | NUR ---
FAXED CHART NOTES TO [facility] AFTER SPEAKING WITH BERNARDO FROM [facility], FAXED NOTES INCLUDED FACESHEET, ER NOTES, H AND P, OP NOTE, PROG NOTES, IMAGING, PT EVAL AND NOTES, AND THE ORDER FOR A FRONT WHEELED WALKER WITH A PLATFORM FOR HER RT ARM.
--- NOTE | 2017-03-11 16:29 | NUR ---
ADMINISTERED 1 TABLET NORCO FOR 5/10 PAIN IN HIP. PT UP IN CHAIR, CRYCO CUFF ON HIP. PT'S LEGS ELEVATED IN CHAIR. LUNGS CLEAR THROUHGOUT ALL LOBES, PT ABLE TO USE IS AT 1250 ML BEST EFFORT X 5. GAVE PT FRESH ICE WATER. PT HAS NO ADDITIONAL REQUESTS AT THIS TIME, WILL CONTINUE TO MONITOR. CALL LIGHT IN REACH.
--- NOTE | 2017-03-11 16:43 | NUR ---
FATHER FARA IN TO SEE PT.
--- NOTE | 2017-03-11 18:45 | NUR ---
PT WORKED WITH PHYSICAL THERAPY X 2 THIS SHIFT. HAS HAD ICE, SCD'S, HIP ABDUCTOR, AND HEEL PROTECTORS ON THROUHGOUT SHIFT. PT UP IN CHAIR FOR MAJORITY OF DAY. COMPLAINED OF 5/10 PAIN IN HIP WITH NORCO ADMINISTRATION X 2 AND TORADOL X 1. PT DENIES NAUSEA THROUGHOUT SHIFT. HAS BEEN UP TO TOILET WITH 1PA AND AMBULATING WELL. PTS LUNGS HAVE BEEN CLEAR AND PT CONTINUES TO USE IS APPROPRIATELY THIS SHIFT.
--- NOTE | 2017-03-11 18:55 | NUR ---
CHECKED ON PT. PT STATING PAIN 5/10 IN RIGHT HIP. ADMINISTERED IV TORADOL PRN. WILL CONTINUE TO MONITOR. PT HAS CALL LIGHT IN REACH.
--- NOTE | 2017-03-11 19:25 | NUR ---
SHIFT REPORT RECIEVED. PATIENT UP IN CHAIR ON CELLPHONE. DENIES NEEDS AT THIS TIME.
--- NOTE | 2017-03-11 20:20 | NUR ---
PATIENT UP IN BED. EVENING MEDS GIVEN PER ORDER. PATIENT ASSESSMENT COMPLETED AND DOCUMENTED. RIGHT WRIST DRESSING C/D/I AND ARM IS ELEVATED ON PILLOW. STATES PAIN IS TOLERABLE, RATED 3/10. RIGHT HIP DRESSING IS C/D/I. CRYO IN PLACE, ICE REFILLED. PAIN IN HIP IS 4/10, PATIENT STATES THIS IS TOLARABLE. PATIENT UP IN CHAIR AT THIS TIME. FLEX HOSE ARE ON. PULSE OX, O2 94% ON RA. PATIENT DEMONSTRATED PROPER USE OF IS, PERFORMED X5. IV SITE IS SLIGHTLY RED AND PAINFUL TO FLUSH, WILL EVALUATE FOR NEW IV SITE. PATIENT LUNGS ARE CLEAR. BOWEL SOUNDS ARE ACTIVE, ABD SOFT AND NONTENDER. NO FURTHER NEEDS AT THIS TIME. CALL LIGHT IN REACH.
--- NOTE | 2017-03-11 21:56 | NUR ---
PATIENT REQUESTED PRN PAIN MEDS FOR 5/10 PAIN IN HER HIP AND RIGHT LEG. MED GIVEN PER ORDER. PATIENT ASSISTED TO BED. 1PA W/FWW. STEADY ON HER FEET. ABDUCTOR PUT IN PLACE. HEEL PROTECTORS, SCDS, AND FLEX HOSE IN PLACE BILATERALLY. RIGHT ARM ELEVATED. DRESSINGS C/D/I, RIGHT WRIST AND HIP. CRYO IN PLACE WITH SUFFICIENT ICE. PLACE 1L NC ON PATIENT, O2 95%. PATIENT EXPERIENCING MUSCLE SPASMS IN RIGHT LEG. PLACED HEAT PACK. POSITIONED LEG FOR COMFORT. WILL REASSESS. CALL LIGHT IN REACH.
--- NOTE | 2017-03-11 22:51 | NUR ---
PATIENT CONTINUES TO RATE PAIN AT 6/10 IN RIGHT HIP. PATIENT GIVEN PRN PAIN MEDICATION PER ORDER. PATIENT CONTINUES TO WEAR CRYO ON RIGHT HIP AND CRYO HAS SUFFICIENT ICE IN IT. PATIENT HAS SCDS, TEDHOSE, AND HEEL PROTECTORS TO BOTH LOWER EXTREMITIES. PATIENT HAS WEDGE IN PLACE. PATIENTS IV INFILTRATED NEW IV STARTED. PATIENT TOLERATED NEW IV START WELL. PATIENT DENIES ANY NAUSEA AT THIS TIME. PATIENT HAS PULSE OX IN PLACE. PATIENT PLACED ON CPAP. PATIENT DENIES ANY FURTHER NEEDS AT THIS TIME. CALL LIGHT IN REACH.
--- NOTE | 2017-03-12 00:20 | NUR ---
PATIENT REQUEST ASSISTANCE TO BATHROOM. SBA WITH FWW. PATIENT SLOW BUT USES WALKER APPROPRIATELY AND APPEARS STEADY. PATIENT ASSISTED BACK TO BED BY MOLD INSPECTOR. FLEX GARCIA, HEEL PROTECTORS, SCDS ON BILATERALLY. ABDUCTOR IN PLACE. PATIENT REFUSED C PAP. 1L NC IN PLACE. CALL LIGHT IN REACH.
--- NOTE | 2017-03-12 02:43 | NUR ---
PATIENT RESTING IN BED. EYES CLOSED. RR16. PULSE OX, 97%.
--- NOTE | 2017-03-12 03:51 | NUR ---
PATIENT REPORTED PAIN AT 4/10. PRN PAIN MEDS GIVEN. PATIENT UP TO BATHROOM, SBA W/FWW. PATIENT USES WALKER WELL, NEEDS SOME DIRECTION. PATIENT BACK TO BED. CRYO FILLED WITH ICE AND PUT IN PLACE ON RIGHT HIP. DRESSING C/D/I. RIGHT WRIST ELEVATED ON PILLOW. DRESSING C/D/I. PATIENT PLACED ON C-PAP. HEAT PACK APPLIED TO INNER THIGH FOR MUSCLE CRAMPS. FLEX HOSE, SCDS, AND HEEL PROTECTORS IN PLACE BILATERALLY. CALL LIGHT IN REACH. NO FURTHER REQUEST AT THIS TIME.
--- NOTE | 2017-03-12 03:56 | NUR ---
PATIENT RESTED WELL THROUGHOUT NIGHT. PAIN WEL CONTROLLED. PRN PAIN MEDS X3. USED C-PAP FOR A FEW HOURS DURING SLEEP. 1PA W/FFW. OUTPUT QS. NO BM. DRESSING ON RIGHT HIP, MEPILEX AND OBSITE. C/D/I. CRYO TO HIP. RIGHT WRIST PARTIAL CAST AND GILSON WRAP. C/D/I. EVELATED ON PILLOW. FLEX HOSE BILATERALLY. SCDS AND HEEL PROTECTORS WHEN IN BED. REGULAR DIET, TOLERATING WELL. NEW IV IN LEFT WRIST, SL.
--- NOTE | 2017-03-12 06:47 | NUR ---
PATIENT RESTING IN BED. CPAP ON. VS DONE BY GEOVANNY ESCALERA. RIGHT WRIST ELEVATED, DRESSING C/D/I. CRYO HAS SUFFICIENT ICE AND IS IN PLACE ON RIGHT HIP. FLEX [facility]OS[facility], SCDS, AND HEEL PROTECTORS IN PLACE BILATERALLY. NO NEEDS AT THIS TIME. CALL LIGHT IN REACH.
--- NOTE | 2017-03-12 07:00 | NUR ---
BEDSIDE REPORT RECEIVED FROM COLT WILLAMS. PT SLEEPING, CPAP IN PLACE, SPO2 98%. WILL CONTINUE TO MONITOR.
--- NOTE | 2017-03-12 09:13 | NUR ---
DR GUILLEN WAS IN TO ROOM TO EVALUATE PATIENT AND DISCUSS PLAN OF CARE. ORDER TO LET PATIENT SHOWER. PLAN TO CHANGE PATIENT STATUS TO SWING BED TOMORROW. PATIENT RESTING IN THE CHAIR EATING BREAKFAST. NO APPARENT DISTRESS NOTED.
--- NOTE | 2017-03-12 09:35 | NUR ---
PT ASSESSMENT COMPLETE. PT LUNGS CLEAR THROUGHOUT LOBES BILATERALLY. PT BOWEL TONES ACTIVE X 4. PT REFUSES SUPPOSITORY AT THIS TIME, HAS NOT HAD BM SINCE 03/07/17. PT DRESSING ON HIP CDI, PT COMPLAINING OF 5/10 PAIN IN RIGHT WRIST, HIP. ASSISTED PT TO TOILET WITH 2PA, FWW. PT INSTRUCTED TO USE CALL LIGHT WHEN FINISHES. WILL ADMINISTER PRN NORCO WHEN PT BACK TO CHAIR.
--- NOTE | 2017-03-12 10:08 | NUR ---
ADMINISTERED 1 NORCO TABLET PRN FOR 5/10 PAIN IN RIGHT WRIST, PT STATING IT IS "THROBBING". PT IN CHAIR, CRYCO CUFF ON RIGHT HIP. PT BRUSHED TEETH, WASHED FACE IN CHAIR. CALL LIGHT WITH PT. WILL CONTINUE TO MONITOR.
--- NOTE | 2017-03-12 12:14 | NUR ---
IN PT'S ROOM TO CHECK ON PT. PT UP IN CHAIR EATING LUNCH. PT HAS NO REQUESTS AT THIS TIME, RATING PAIN AT 4-41/2 /10 IN RIGHT WRIST. PT REFUSES PAIN MEDICATIONS AT THIS TIME. CRYO CUFF ON HIP, CALL LIGHT IN REACH, WILL CONTINUE TO MONITOR.
--- NOTE | 2017-03-12 16:00 | NUR ---
[facility] SUPPOSITORY ADMINISTERED TO PT FOR CONSTIPATION. PT OUT OF SHOWER, UP TO CHAIR. PT ASSESSMENT COMPLETE. PT STATING 6/10 PAIN IN WRIST. ADMINISTERED PRN TORADOL. PT LUNGS CLEAR THROUGHOUT. SURGICAL SITE ON RIGHT HIP CLEAN, DRY, INTACT. PT HAS CRYO CUFF ON. CALL LIGHT IN REACH. WILL CONTINUE TO MONITOR.
--- NOTE | 2017-03-12 17:58 | NUR ---
ASSESSED PT PAIN, PT STATING PAIN IN RIGHT WRIST, RIGHT HIP "STIFF" 4/10 PAIN. PT REFUSES PRN PAIN MEDICATION AT THIS TIME. CALL LIGHT IN REACH. PT ORDERED DINNER LATE, PLAN FOR PT TO EAT DINNER, THEN WALK.
--- NOTE | 2017-03-12 18:10 | NUR ---
ANSWERED PT CALL LIGHT. ASSISTED PT TO REPOSITION. PT PERFORMING PHYSICAL THERAPY EXERCISES WHILE WAITING FOR DINNER. CALL LIGHT IN REACH. WILL CONTINUE TO MONITOR.
--- NOTE | 2017-03-12 18:37 | NUR ---
PT HAD SHOWER TODAY. WORKED WITH PT THIS MORNING. PT HAD BM AFTER RECEIVING SUPPOSITORY THIS AFTERNOON. PT HAS DENIED NAUSEA. STATED PAIN HIGH 5/10 THIS SHIFT AND RECEIVED NORCO X 1, TORADOL X 1. CRYO CUFF IN PLACE THIS SHIFT. PT UP IN CHAIR THROUGHOUT DAY SHIFT, LEGS ELEVATED. PT HAS USED CALL LIGHT CONSISTENTLY.
--- NOTE | 2017-03-12 19:05 | NUR ---
SHIFT REPORT RECIEVED. PATIENT SITTING IN CHAIR USING LAPTOP. DENIES NEEDS AT THIS TIME. CALL LIGHT IN REACH.
--- NOTE | 2017-03-12 21:15 | NUR ---
PATIENT SITTING IN CHAIR USING LAPTOP. RATES PAIN IN RIGHT HIP AND WRIST AT 5/10. PRN PAIN MEDS GIVEN. DRESSING ON HIP IS C/D/I. CRYO IN PLACE WITH ADEQUATE ICE. WRIST DRESSING IS C/D/I. PATIENT DENIES NAUSEA. ABD IS SOFT, NONTENDER AND BOWEL SOUNDS ACTIVE. LUNG ARE CLEAR. FLEX HOSE ON BILATERALLY. PATENT DENIES FURTHER NEEDS AT THIS TIME. IV IS SL, ATTEMPTED TO FLUSH WITH NS. IV INFILTRATED. WILL ATTEMP NEW IV ACCESS.
--- NOTE | 2017-03-12 21:52 | NUR ---
PATIENT HAS FRIENDS IN ROOM FOR VISIT. DENIES NEEDS AT THIS TIME.
--- NOTE | 2017-03-12 23:00 | NUR ---
PATIENTS IV NO LONGER PATENT. NE IV STARTED IN LEFT FOREARM AND DOCUMENTED. PATIENT TOLERATED ACTIVITY WELL. PATIENT DENIES ANY PAIN AT THIS TIME. PATIENT WATCHING TV ON LAPTOP. PATIENT DENIES ANY NEEDS AT THIS TIME. CALL LIGHT IN REACH.
--- NOTE | 2017-03-13 00:15 | NUR ---
PATIENT UP IN CHAIR WATCHING MOVIE ON HER LAPTOP. NO NEEDS AT THIS TIME. CALL LIGHT IN REACH. STATES THAT HER PAIN IS WELL CONTROLLED. CRYO IN PLACE, SUFFICIENT ICE.
--- NOTE | 2017-03-13 01:22 | NUR ---
CARE DIRECTOR RN ASSISTED PATIENT TO BATHROOM AND WITH PM CARE. PATIENT IS READY FOR BED. POSITIONED IN BED. RIGHT WRIST ELEVATED ON PILLOW. FLEX HOSE, SCDS AND HEEL PROTECTORS ON. ABDUCTOR IN PLACE. PATIENT REQUEST PRN PAIN MEDS AND MED FOR MUSCLE SPASM. THESE MEDS WERE GIVEN PER ORDERS. CPAP WAS PLACED. CALL LIGHT IN REACH.
--- NOTE | 2017-03-13 03:08 | NUR ---
PATIENT RESTING EYES CLOSED. CPAP ON. CALL LIGHT IN REACH. CRYO IN PLACE. SUFFICIENT ICE.
--- NOTE | 2017-03-13 04:09 | NUR ---
ASSISTED PATIENT TO BATHROOM. SBA W/FWW. PATIENT STEADY ON HER FEET. USES WALKER CORRECTLY. BACK TO BED. SCDS, FLEX HOSE, AND HEEL PROTECTORS IN PLACE. CPAP ON. CRYO IN PLACE AND SUFFICIENT ICE. NO NEEDS AT THIS TIME. CALL LIGHT IN PLACE.
--- NOTE | 2017-03-13 04:28 | NUR ---
PATIENT RESTED WELL THROUGHOUT THE SHIFT. PAIN WELL CONTROLLED. PRN PAIN MEDS X2. PATIENT TOLERATED CPAP WELL. SBA W/FWW. WRIST DRESSING C/D/I. HIP DRESSING C/D/I. CRYO IN PLACE ON HIP. FLEX HOSE ON BILATERALLY. HEEL PROTECTORS AND SCDS WHEN IN BED. TOLERATING REGULAR DIET WELL. URINE OUTPUT QS. VS WNL.
--- NOTE | 2017-03-13 05:41 | NUR ---
PATIENT ASSISTED TO BATHROOM. ASSISTED BACK TO BED. CRYO HAS SUFFICIENT ICE. PATIENT DENIES FURTHER NEEDS AT THIS TIME. DOES NOT WANT TO WEAR CPAP ANYMORE THIS MORNING.
--- NOTE | 2017-03-13 06:33 | NUR ---
ASSISTED PATIENT TO BATHROOM. BACK TO SIDE OF BED. STATES HER MUSCLES FEEL "SORE". DENIES NEED FOR PRN PAIN MEDS. LAB IN ROOM FOR MORNING LABS. PATIENT STATES SHE WILL USE CALL LIGHT WHEN SHE IS READY TO LAY BACK DOWN.
--- NOTE | 2017-03-13 06:56 | NUR ---
PATIENT CALLED AND REQUESTED PAIN MEDICATION FOR 5/10 PAIN. PATIENT EXPRESSED CONCERN ABOUT PAIN CONTROL. PATIENT STATED "I AM WORRIED ABOUT GETTING IN TROUBLE BY THE DOCTOR FOR MY PAIN BEING A 5/10" DISCUSSED PATIENTS PAIN GOAL. PATIENT STATED "MY PAIN GOAL IS A 4/10 THATS WHERE I AM COMFORTABLE". REEDUCATED PATIENT ON THE PAIN SCALE AND PAIN CONTROL. REEDUCATED PATIENT ON HOW OFTEN PRN PAIN MEDICATION WAS AVAILABLE AND TO LET STAFF KNOW WHEN HER SHE WAS IN PAIN. ALSO EDUCATED PATIENT ON THE IMPORTANCE OF HER CRYO AND HOW ICE HELPS. PATIENT VERBALIZED UNDERSTANDING. PATIENT ALSO VERBALIZED LETTING STAFF KNOW SOONER WHEN SHE WAS IN PAIN. PATIENT VERBALIZED UNDERSTANDING AND AGREED TO ALERT STAFF. PATIENT GIVEN PRN PAIN MEDICATION PER ORDER. PATIENTS CRYO HAS SUFFICIENT ICE AND IS APPLIED TO HER RIGHT HIP. ICE PROVIDED FOR RIGHT WRIST. PATIENT CONTINUES TO REST IN BED WITH SCDS ON, TEDHOSE ON BOTH LOWER EXTREMITIES, AND HEEL PROTECTORS ON. DRESSING C/D/I. PATIENT DENIES ANY FURTHER NEEDS AT THIS TIME. CALL LIGHT IN REACH.
--- NOTE | 2017-03-13 07:56 | NUR ---
PT AWAKE IN BED. ORDERED BREAKFAST. PICKED UP ROOM.
--- NOTE | 2017-03-13 09:00 | NUR ---
PATIENT NOW SITTING UP IN RECLINER, PRACTICING LEG EXERCISES. PATIENT STATES " I FEEL MUCH BETTER SINCE POOPING". DISCUSSED DRINKING WATER MORE THROUGHOUT DAY AND EATING MORE LEAFY GREENS WHILE TAKING NARCOTICS. PATIENT VERBALIZED UNDERSTANDING. DRESSINGS TO LEG AND ARM C/D/I. PATIENT INQUIRED ABOUT SWING BED, DISCUSSED NURSING CARE AND PHYSICAL THERAPY REQUIREMENTS. ADDRESSED QUESTIONS AND CONCERNS.
--- NOTE | 2017-03-14 08:28 | DS ---
[facility] [address] [facility] [place], [place] [address] Signed DATE OF DISCHARGE: 03/13/17 ADMISSION DIAGNOSES Right femoral neck fracture. Comminuted severe distal radius fracture, right. DISCHARGE DIAGNOSES Right femoral neck fracture. Comminuted severe distal radius fracture, right. PROCEDURES PERFORMED During this hospitalization: Closed reduction, percutaneous pinning, right wrist. Right bipolar hemiarthroplasty. BRIEF HISTORY AND HOSPITAL COURSE Aylin is a 67-year-old female, who got tangled up with her dogs, sustained a ground level fall. She was transported by ambulance to the emergency room where radiographs revealed the above injuries. She was seen see in the Emergency Department and admitted to the hospital. She was taken operating room the next day, after clearance by the Medicine Service and she underwent the above procedure. She tolerated this well, was taken to the recovery room and subsequently to the orthopedic floor. She had good pain control on oral [place]. She had physical therapy with weightbearing as tolerated using a platform walker. She tolerated this well. However, she did well and was felt to be stable to discharge to Swing Bed for continued inpatient rehab. She will follow up with me in 10-14 days. Deborah Lopez MD BA/Fernando /[id number] cc: Preeti Feldman NP Electronically Signed By: DEBORAH LOPEZ MD 03/14/17 0828 PATIENT NAME: AYLIN WEINSETIN DISCHARGE SUMMARY DATE OF : 50 PHYSICIAN: DEBORAH LOPEZ MD REPORT #: [id number] REPORT IS CONFIDENTIAL AND NOT TO BE RELEASED WITHOUT AUTHORIZATION
[2017-04-01] MEDS ORDERED: SKELAXIN800 MG PO (07:46)
[2017-04-01] MEDS ORDERED: HYDROCODON-ACE1 EA11 PO (07:46)
[2017-05-20] MEDS ORDERED: CALCIUM600 MG PO (13:11)
[2017-05-20] MEDS ORDERED: VITAMIN D1000 UNI1 PO (13:11)
[2017-05-23] MEDS ORDERED: ADVIL200 M1 PO (07:36)
[2017-05-23] MEDS ORDERED: FOSAMAX70 MG PO (07:36)
== END 2017-03-13 10:15 | disposition swing bed (61) | DRG 469 ==
LOC: ED 11:26 → CCU 14:48 → MS 14:48 → CCU 03-09 16:51 → MS 03-10 09:00
PROVIDERS: ADMIT Specialist
PROC: 0PSH34Z Reposition Right Radius with Internal Fixation Device, Percutaneous Approach (ICD-10-PCS; principal; 2017-03-09 12:00)
PROC: 0SRR0JZ Replacement of Right Hip Joint, Femoral Surface with Synthetic Substitute, Open Approach (ICD-10-PCS; 2017-03-09 12:00)
DX: S72.031A Displaced midcervical fracture of right femur, initial encounter for closed fracture (principal); J95.821 Acute postprocedural respiratory failure; S52.501A Unspecified fracture of the lower end of right radius, initial encounter for closed fracture; W19.XXXA Unspecified fall, initial encounter; Z98.890 Other specified postprocedural states; G47.33 Obstructive sleep apnea (adult) (pediatric)
CPT/HCPCS: 01830; 36415; 36600; 64415; 64416; 71010; 73100; 73110; 73502; 73700; 76942; 80048; 80053; 81001; 82803; 85025; 85610; 85730; 93005; 93010; 94640; 94644; 94660; 94760; 97110; 97116; 97161; 97530; C1776; J0690; J1100; J1170; J1720; J1885; J2250; J2274; J2405; J2704; J2765; J3010; J3590; J7030; J7120

== ENCOUNTER 2017-03-13 10:15 | Inpatient (IN) | payer OTHER, MEDICARE ==
[~2017-03-13] VITALS: Ht 162.6 cm; Wt 81.7 kg
[2017-05-20] MEDS ORDERED: CALCIUM600 MG PO (13:11)
[2017-05-20] MEDS ORDERED: VITAMIN D1000 UNI1 PO (13:11)
[2017-05-23] MEDS ORDERED: FOSAMAX70 MG PO (07:36)
[2017-05-23] MEDS ORDERED: ADVIL200 M1 PO (07:36)
== END 2017-03-28 08:45 | disposition still patient (30) ==
LOC: MS 10:15
PROVIDERS: ADMIT Specialist
CPT/HCPCS: 73110; 94660; 94762; 97110; 97116; 97161; 97165; 97530; 97535; J1100; J1885; J2250; J2704; J2765; J2795; J3010

== ENCOUNTER 2017-03-28 08:45 | Inpatient (IN) | payer OTHER, MEDICARE ==
--- NOTE | 2017-03-30 07:05 | OR ---
[facility] [address] [place], [place] [address] Signed DATE OF PROCEDURE: 03/28/17 PREOPERATIVE DIAGNOSIS Comminuted right distal radius fracture, status post pinning. POSTOPERATIVE DIAGNOSIS Comminuted right distal radius fracture, status post pinning. PROCEDURE PERFORMED: Open reduction and internal fixation, right wrist. OBSTETRICAL NURSE: Selam Marie PA-C and KAEL Mcdonald. Selam was present for the entire procedure, was critical for positioning, retraction and wound closure. ANESTHESIA: Axillary block with sedation. TOURNIQUET TIME: 72 minutes. IMPLANTS: A 9-hole Synthes distal radius plate with 2.7 and 2.4 screws. BRIEF HISTORY Aylin is a 67-year-old female, 2 weeks ago sustained a ground level fall fracturing her hip and her distal radius. The wrist was tender at that time due to substantial swelling and her hip was fixed. She was admitted to Swing Bed, where she has rehabbed nicely. The plan originally was to bring her back in 2 weeks and remove the pins and fix her wrist. She elected to proceed. DESCRIPTION OF PROCEDURE Once consent was obtained, she was taken to the operating room. After adequate anesthesia, was placed on operating table. All downside pressure points well padded. The wrist was prepped and draped in a standard sterile fashion up to a well-padded proximal arm tourniquet. The arm was exsanguinated using Esmarch bandage. Tourniquet inflated to 200 mmHg. Standard Ravin approach to the distal radius was taken through skin and subcutaneous tissue. The FCR was retracted and protected. The floor of the FCR sheath was entered and the pronator was elevated from its radial attachment. The fracture was identified quite easily and was freed up, mobilized and scar tissue and early callus was removed. It was then reduced and a single 1.0 and 1.6 K-wire were used to again re-pin the wrist in a better reduction position. The plate was then fashioned to fit the distal radius and was screwed to the distal radius using the central hole. It was then adjusted. Two more screws were placed distally into the subarticular space reducing the fracture and holding it stable. The plate was then aligned with the radius and this further reduced the fracture in terms of the radial inclination. Two screws were placed Electronically Signed By: DEBORAH LOPEZ MD 03/30/17 0705 PATIENT NAME: AYLIN WEINSTEIN OPERATIVE REPORT DATE OF : 50 PHYSICIAN: DEBORAH LOPEZ MD REPORT #: [id number] REPORT IS CONFIDENTIAL AND NOT TO BE RELEASED WITHOUT AUTHORIZATION [facility] [address] [place] [id number] Signed in the proximal aspect of the plate. The remaining distal screws were placed and appropriate length screws, both locking and no n locking were used. Two more of the screws placed proximally and one was removed and replaced with a shorter screw. Final radiograph showed the fracture to be well reduced, plate in good alignment and the screws appropriate length. Wound was copiously irrigated with antibiotic solution. The pronator was repaired back into position using 2-0 Monocryl, for the FCR sheath with 2-0 Monocryl, the subcu tissue with 3-0 Monocryl and skin was closed using a running 3-0 nylon. It was dressed with Mepilex Ag dressing gauze. She was placed back into a wrist splint. She tolerated procedure well. All sponge, needle, instrument counts were correct. Deborah Lopez MD BA/Fernando /[id number] cc: CHRIS Redding Electronically Signed By: DEBORAH LOPEZ MD 03/30/17 0705 PATIENT NAME: AYLIN WEINSTEIN OPERATIVE REPORT DATE OF : 50 PHYSICIAN: DEBORAH LOPEZ MD REPORT #: [id number] REPORT IS CONFIDENTIAL AND NOT TO BE RELEASED WITHOUT AUTHORIZATION
[2017-04-01] MEDS ORDERED: HYDROCODON-ACE1 EA11 PO ×2 (07:46)
[2017-04-01] MEDS ORDERED: SKELAXIN800 MG PO ×2 (07:46)
--- NOTE | 2017-04-04 10:41 | DS ---
[facility] [address] [facility] [place], [place] [address] Signed ADMISSION DATE: 03/28/2017 DISCHARGE DATE: 04/01/2017 DATE OF ADMISSION TO SWING BED: Approximately 03/12/2017, discharge 04/01/2017. ADMISSION DIAGNOSES: Right hip fracture, right wrist fracture. DISCHARGE DIAGNOSES: Right hip fracture, right wrist fracture. PROCEDURE PERFORMED DURING SWING BED: Open reduction and internal fixation, right distal radius. BRIEF HISTORY: Aylin is a 67-year-old female who sustained a ground-level fall after getting wrapped up with her dog's leash. She had a right hip fracture, and right distal radius fracture. She was taken to the operating room under inpatient admission, underwent bipolar hemiarthroplasty on the right and pinning of her wrist to allow swelling to go down with plan to go back, and fix it later. She was in the hospital for three days, and switched to Swing Bed due to living alone, and having no support system. She did well on swing bed, and was taken ultimately this Tuesday to the operating room for open reduction and internal fixation, which she tolerated nicely. Pain medication of Philpot 7.5, and Skelaxin were used with good success. She was seen by Physical Therapy, able to ambulate all the way down to the cafeteria, and back, and up and down stairs by the day of discharge. She will be discharged to home with outpatient physical therapy. She will follow up with me in 7 to 10 days. She will be sent on her current medications. Deborah Lopez MD BA/EASTON /[id number] Electronically Signed By: DEBORAH LOPEZ MD 04/04/17 1041 PATIENT NAME: AYLIN WEINSTEIN DISCHARGE SUMMARY DATE OF : 50 PHYSICIAN: DEBORAH LOPEZ MD REPORT #: [id number] REPORT IS CONFIDENTIAL AND NOT TO BE RELEASED WITHOUT AUTHORIZATION [address] [place] [address] Signed Electronically Signed By: DEBORAH LOPEZ MD 04/04/17 1041 PATIENT NAME: AYLIN WEINSTEIN DISCHARGE SUMMARY DATE OF : 50 PHYSICIAN: DEBORAH LOPEZ MD REPORT #: [id number] REPORT IS CONFIDENTIAL AND NOT TO BE RELEASED WITHOUT AUTHORIZATION
[2017-05-20] MEDS ORDERED: VITAMIN D1000 UNI1 PO (13:11)
[2017-05-20] MEDS ORDERED: CALCIUM600 MG PO (13:11)
[2017-05-23] MEDS ORDERED: ADVIL200 M1 PO (07:36)
[2017-05-23] MEDS ORDERED: FOSAMAX70 MG PO (07:36)
== END 2017-04-01 18:30 | disposition home or self-care (01) | DRG 512 ==
LOC: MS 08:45 → DSVR 08:45 → MS 14:18
PROVIDERS: ADMIT Specialist
PROC: 0PSH04Z Reposition Right Radius with Internal Fixation Device, Open Approach (ICD-10-PCS; principal; 2017-03-28 10:30)
DX: S52.501A Unspecified fracture of the lower end of right radius, initial encounter for closed fracture (principal); W19.XXXA Unspecified fall, initial encounter
CPT/HCPCS: 01830; 64417; 73100; 76942; 97110; 97116; 97161; 97530; 97535; C1713; J0690; J3010; J7120

== ENCOUNTER → 2017-05-23 | Day surgery (SDC) | payer MEDICARE, OTHER ==
[~2017-05-23] VITALS: Ht 162.6 cm; Wt 76.7 kg
[~2017-05-23] MED LIST changes: +ADVIL200 M1 PO; +CALCIUM600 MG PO; +FOSAMAX70 MG PO; +SKELAXIN800 MG PO; +VITAMIN D1000 UNI1 PO
--- NOTE | 2017-05-23 11:14 | NUR ---
05/23/17 1114 Luciana Rooney 1017 PT RESP EVEN AND UNLABORED. 1020 MD AT BEDSIDE 1022 O2 REMOVED.
--- NOTE | 2017-05-23 12:30 | NUR ---
AMY 1145: PT IS ASSISTED UP OOB TO BATHROOM VIA WALKER. SHE IS ABLE TO VOID 600ML OF DARK YELLOW URINE. SHE IS HELP BACK TO BED AND ICE IS RETURNED TO SURGICAL SITE. SHE REQUESTS A WARM BLANKET.
--- NOTE | 2017-05-25 09:27 | OR ---
[facility] [address] [facility] [place], [place] [address] Signed DATE OF OPERATION: 05/23/2017 SURGEON: Deboarh Lopez MD PREOPERATIVE DIAGNOSIS: Painful hardware, right wrist. POSTOPERATIVE DIAGNOSIS: Painful hardware, right wrist. PROCEDURE: Removal of hardware, deep right wrist. DESKTOP SUPPORT MANAGER: Selam Marie PA-C. Selam was present for the entire surgery and was critical for retraction, wound closure, and positioning. ANESTHESIA: General. BLOOD LOSS: Minimal. TOURNIQUET TIME: Approximately 25 minutes. BRIEF HISTORY: Aylin is a 67-year-old female with history of hip fracture and simultaneous wrist fracture. She underwent open reduction, internal fixation of the wrist and subsequently healed, however, the fracture collapsed a little bit on the ulnar side. One of the screws oblique migrated into the joint and it was very close. I then advised we should go ahead and take the hardware out and proceed with rehabbing her wrist. She was amenable. Risks, benefits, and alternatives were discussed with her and she elected to proceed. DESCRIPTION OF PROCEDURE: Once consent was obtained, she was taken to the operating room. After adequate anesthesia, she was placed on operating table. All downside pressure points well padded. Electronically Signed By: DEBORAH LOPEZ MD 05/25/17 0927 PATIENT NAME: AYLIN WEINSTEIN OPERATIVE REPORT DATE OF : 50 PHYSICIAN: DEBORAH LOPEZ MD REPORT #: [id number] REPORT IS CONFIDENTIAL AND NOT TO BE RELEASED WITHOUT AUTHORIZATION [facility] [address] [facility] [place], [place] [address] Signed The arms were placed in well-padded proximal arm tourniquet, prepped and draped in standard sterile fashion. The arm was exsanguinated using Esmarch bandage. Tourniquet was inflated to 200 mmHg. The prior incision was marked out and incised longitudinally. Carried through skin and subcutaneous tissue. The FCR was extremely adhesed and was mobilized. The floor of the FCR sheath was then incised longitudinally and the scar tissue was incised down to the bone. This was done carefully with tenotomy scissors. The soft tissue was then elevated off the plate and screws removed. The plate was elevated off the bone quite easily. Wound was closed again with antibiotic solution. The scar tissue was allowed to fall back into place. The floor of the FCR sheath was closed using 2-0 Monocryl. Subcutaneous tissue with 3-0 Monocryl and the skin with 3-0 Prolene. Steri-Strips were applied. Wound was dressed with Mepilex, ABD, and gauze. It is good to note that at the end of the procedure, she did have some oozing from the skin. Direct pressure stopped this and she was given TXA. She was awakened and taken to recovery in satisfactory condition. All sponge, needle, and instrument counts were correct. Deborah Lopez MD BA/EASTON /[id number] Electronically Signed By: DEBORAH LOPEZ MD 05/25/17 27 PATIENT NAME: AYLIN WEINSTEIN OPERATIVE REPORT DATE OF : 50 PHYSICIAN: DEBORAH LOPEZ MD REPORT #: [id number] REPORT IS CONFIDENTIAL AND NOT TO BE RELEASED WITHOUT AUTHORIZATION
== END ==
LOC: DS 07:05
PROVIDERS: Specialist
PROC: 0RPN04Z Removal of Internal Fixation Device from Right Wrist Joint, Open Approach (ICD-10-PCS; principal; 2017-05-23 09:15)
DX: T84.84XA Pain due to internal orthopedic prosthetic devices, implants and grafts, initial encounter (principal); G89.18 Other acute postprocedural pain; E78.00 Pure hypercholesterolemia, unspecified; M19.90 Unspecified osteoarthritis, unspecified site; Z87.01 Personal history of pneumonia (recurrent); Z98.890 Other specified postprocedural states
CPT/HCPCS: 01820; 64417; 76942; J0690; J1100; J2250; J2405; J2704; J2795; J3010; J7120